=== PATIENT | male | born 1970 | race Caucasian/White ===

== ENCOUNTER 2019-03-31 08:03 | Emergency (ER) | payer MEDICAID ==
[~2019-03-31] VITALS: Ht 172.7 cm; Wt 61.6 kg
[2019-03-31 08:05] VITALS: BP 156/104
--- NOTE | 2019-03-31 08:10 | NUR ---
ATTEMPTED TO PERFORM VISUAL ACUITY TEST WITH PATIENT. HE STATES THAT HE DID NOT BRING HIS GLASSES
[2019-03-31] MEDS ORDERED: PROPARACAINE OPHTH 0.5%, 15ML ONE (08:12)
[2019-03-31] MEDS ORDERED: FLUORESCEIN OPHTHALMIC 1 MG STRIP ONE (08:12)
--- NOTE | 2019-03-31 08:18 | NUR ---
48 y/o MALE ;PRESENTS TO ED WITH C/O FB IN HIS LEFT EYE. PT STATES "A WEEK AND A HALF AGO I GOT A ROCK IN MY EYE. IT GOT BETTER. THEN THE OTHER DAY SOMETHING ELSE GOT IN THERE. I DON'T KNOW IF IT WAS A BUG, OR WHAT." BEDSIDE.
[2019-03-31] MEDS ORDERED: PROPARACAINE OPHTH 0.5%, 15ML EACHEYE ONE (09:00)
[2019-03-31] MEDS ORDERED: FLUORESCEIN OPHTHALMIC 1 MG STRIP EACHEYE ONE (09:00)
--- NOTE | 2019-03-31 10:08 | NUR ---
late entry for 0950 Patient/Caregiver given discharge instructions and they have confirmed that they understand the instructions. Patient ambulatory with steady gait. PT LEFT WITH ALL PERSONAL BELONGINGS.
== END 2019-03-31 10:10 | disposition home or self-care (01) ==
LOC: ED 09:56
DX: T15.02XA Foreign body in cornea, left eye, initial encounter (principal); F17.210 Nicotine dependence, cigarettes, uncomplicated
CPT/HCPCS: 65222; 99284